=== PATIENT | male | born 1960 | race African-American/Black ===

== ENCOUNTER 2022-10-02 12:05 | Inpatient (IN) | payer OTHER ==
[2022-10-02 12:29] VITALS: BMI 38.3
[2022-10-02] MEDS ORDERED: BENZOCAINE/MENTHOL (CHLORASEPTIC ) LOZENGE MM PRN (13:01)
[2022-10-02] MEDS ORDERED: hydrOXYzine PAMOATE 25 MG CAPSULE (FP) PO PRN (13:01)
[2022-10-02] MEDS ORDERED: LOPERAMIDE HCL 2 MG CAPSULE PO PRN (13:01)
[2022-10-02] MEDS ORDERED: MAGNESIUM HYDROX 2400MG/30ML ORAL SUSPENSION 30 ML CUP PO PRN (13:01)
[2022-10-02] MEDS ORDERED: ONDANSETRON *ODT* 4 MG TABLET SL PRN (13:01)
[2022-10-02] MEDS ORDERED: LORazepam 1 MG TABLET PO PRN (13:01)
[2022-10-02] MEDS ORDERED: ACETAMINOPHEN 325 MG TABLET (FP) PO PRN (13:01)
[2022-10-02] MEDS ORDERED: POLYETHYLENE GLYCOL (HEALTHYLAX) 3350 17 GM PACKET PO PRN (13:01)
[2022-10-02] MEDS ORDERED: BENZONATATE 200 MG CAPSULE PO PRN (13:01)
[2022-10-02] MEDS ORDERED: NALOXONE HCL 0.4 MG/ML VIAL IM PRN (13:01)
[2022-10-02] MEDS ORDERED: BISMUTH SUBSALICYLATE 524 MG/30 ML PO PRN (13:01)
[2022-10-02] MEDS ORDERED: NALOXONE HCL (KLOXXADO) 8 MG SPRAY NS PRN (13:01)
[2022-10-02] MEDS ORDERED: DICYCLOMINE HCL 10 MG CAPSULE PO PRN (13:01)
[2022-10-02] MEDS ORDERED: NICOTINE POLACRILEX 2 MG GUM BUC PRN (13:01)
[2022-10-02] MEDS ORDERED: guaiFENesin 600 MG TABLET.ER (FP) PO PRN (13:01)
[2022-10-02] MEDS ORDERED: MAG HYDROX/AL HYDROX/SIMETH 30 ML UNIT-DOSE CUP PO PRN (13:01)
[2022-10-02] MEDS ORDERED: IBUPROFEN 400 MG TABLET (FP) PO PRN (13:01)
[2022-10-02] MEDS ORDERED: PATIENT'S OWN MEDICATION (NON-FORMULARY) (Dolutegravir/Rilpivirine [Juluca 50-25 Mg Tablet PO SCH (15:15)
[2022-10-02] MEDS ORDERED: RILPIVIRINE HCL 25 MG TABLET PO ONE (15:45)
[2022-10-02] MEDS ORDERED: DOLUTEGRAVIR SODIUM 50 MG TABLET (NON-FORMULARY) PO ONE (15:45)
[2022-10-02] MEDS: LORazepam 2 MG TABLET PO SCH ×2 (17:22→22:18)
[2022-10-02] MEDS ORDERED: MELATONIN 5 MG TABLETS PO SCH (22:00)
[2022-10-02] MEDS: SUVOREXANT 10 MG TABLET PO PRN (22:21)
[2022-10-02] MEDS: THIAMINE HCL 100 MG TABLET (FP) PO SCH (22:21)
[2022-10-03] MEDS: LORazepam 2 MG TABLET PO SCH ×4 (05:41→22:14)
[2022-10-03] MEDS: RILPIVIRINE HCL 25 MG TABLET PO SCH (07:07)
[2022-10-03] MEDS: DOLUTEGRAVIR SODIUM 50 MG TABLET (NON-FORMULARY) PO SCH (07:07)
[2022-10-03] MEDS: HYDROCHLOROTHIAZIDE 12.5 MG CAPSULE (FP) PO SCH (10:24)
[2022-10-03] MEDS: PRENATAL VITAMINS W/ FOLIC ACID TABLET (FP) PO SCH (10:24)
[2022-10-03] MEDS: LISINOPRIL 10 MG TABLET PO SCH (10:24)
[2022-10-03 10:39] LABS: HEMATOCRIT 36.9 % (35.4-49); HEMOGLOBIN 12.5 GM/dL (11.7-16.9); MCH 29.9 pg (25.7-33.7); MCHC 33.9 g/dl (32.0-35.9); MEAN CELL VOLUME 88.4 fl (80-96); MEAN PLT VOLUME 9.9 fl (7.5-11.1); PLATELET COUNT 170 10^3/uL (134-434); RBC 4.18 M/mm3 (4.00-5.60); RDW 14.1 % (11.9-15.9); WHITE BLOOD COUNT 3.7 K/mm3 (4.0-10.0)
[2022-10-03 12:58] LABS: POTASSIUM 3.6 mmol/L (3.5-5.1)
[2022-10-03 14:03] LABS: CALCIUM 8.6 mg/dL (8.5-10.1)
[2022-10-03 14:04] LABS: ALBUMIN 2.9 g/dl (3.4-5.0); BLOOD UREA NITROGEN 10.7 mg/dL (7-18)
[2022-10-03 14:05] LABS: CREATININE 1.3 mg/dL (0.55-1.3)
[2022-10-03 14:08] LABS: BILIRUBIN,TOTAL 0.4 mg/dL (0.2-1)
[2022-10-03 14:09] LABS: TOT PROT 6.2 g/dl (6.4-8.2)
[2022-10-03] MEDS ORDERED: INSULIN (NOVOLOG) ASPART 100 UNITS/ML 10ML VIAL ONE ×2 (17:27→22:18)
[2022-10-03] MEDS: INSULIN (NOVOLOG) ASPART 100 UNITS/ML 10ML VIAL SQ SCH ×2 (17:28→22:15)
[2022-10-03] MEDS: THIAMINE HCL 100 MG TABLET (FP) PO SCH (22:13)
[2022-10-03] MEDS: SUVOREXANT 10 MG TABLET PO PRN (22:20)
[2022-10-04] MEDS: LORazepam 1 MG TABLET PO SCH ×4 (05:56→22:21)
[2022-10-04] MEDS ORDERED: INSULIN (NOVOLOG) ASPART 100 UNITS/ML 10ML VIAL ONE ×4 (06:09→21:31)
[2022-10-04] MEDS: INSULIN (NOVOLOG) ASPART 100 UNITS/ML 10ML VIAL SQ SCH ×4 (06:17→21:27)
[2022-10-04] MEDS: DOLUTEGRAVIR SODIUM 50 MG TABLET (NON-FORMULARY) PO SCH (07:24)
[2022-10-04] MEDS: RILPIVIRINE HCL 25 MG TABLET PO SCH (07:24)
[2022-10-04] MEDS: PRENATAL VITAMINS W/ FOLIC ACID TABLET (FP) PO SCH (11:07)
[2022-10-04] MEDS: LISINOPRIL 10 MG TABLET PO SCH (11:07)
[2022-10-04] MEDS: HYDROCHLOROTHIAZIDE 12.5 MG CAPSULE (FP) PO SCH (11:07)
[2022-10-04] MEDS ORDERED: HYDROCHLOROTHIAZIDE 12.5 MG CAPSULE (FP) PO ONE (13:15)
[2022-10-04] MEDS: INSULIN (LEVEMIR) 100 UNITS/ML UNITS SQ SCH (21:28)
[2022-10-04] MEDS: THIAMINE HCL 100 MG TABLET (FP) PO SCH (21:32)
[2022-10-04] MEDS: valACYclovir HCL 500 MG TABLET (FP) PO SCH (22:22)
[2022-10-04] MEDS: SUVOREXANT 15 MG TABLET PO PRN (22:22)
[2022-10-05] MEDS ORDERED: LORazepam 0.5 MG TABLET PO PRN
[2022-10-05] MEDS: LORazepam 0.5 MG TABLET PO SCH ×4 (05:47→22:38)
[2022-10-05] MEDS: IBUPROFEN 600 MG TABLET (FP) PO PRN (05:48)
[2022-10-05] MEDS: RILPIVIRINE HCL 25 MG TABLET PO SCH (07:39)
[2022-10-05] MEDS: DOLUTEGRAVIR SODIUM 50 MG TABLET (NON-FORMULARY) PO SCH (07:40)
[2022-10-05] MEDS: INSULIN (NOVOLOG) ASPART 100 UNITS/ML 10ML VIAL SQ SCH ×4 (07:48→23:37)
[2022-10-05] MEDS ORDERED: INSULIN (NOVOLOG) ASPART 100 UNITS/ML 10ML VIAL ONE (08:08)
[2022-10-05] MEDS: LISINOPRIL 10 MG TABLET PO SCH (10:44)
[2022-10-05] MEDS: PRENATAL VITAMINS W/ FOLIC ACID TABLET (FP) PO SCH (10:44)
[2022-10-05] MEDS: METHOCARBAMOL 500 MG TABLET PO PRN (10:44)
[2022-10-05] MEDS: HYDROCHLOROTHIAZIDE 25 MG TABLET (FP) PO SCH (10:44)
[2022-10-05] MEDS: valACYclovir HCL 500 MG TABLET (FP) PO SCH ×2 (10:44→22:38)
[2022-10-05 21:00] VITALS: RESP 18
[2022-10-05] MEDS ORDERED: SUVOREXANT 10 MG TABLET PO PRN (22:00)
[2022-10-05] MEDS: THIAMINE HCL 100 MG TABLET (FP) PO SCH (22:38)
[2022-10-05] MEDS: SUVOREXANT 15 MG TABLET PO PRN (22:42)
[2022-10-05] MEDS: INSULIN (LEVEMIR) 100 UNITS/ML UNITS SQ SCH (23:37)
[2022-10-06] MEDS: METHOCARBAMOL 500 MG TABLET PO PRN (00:40)
[2022-10-06] MEDS ORDERED: LORazepam 0.5 MG TABLET PO ONE (05:00)
[2022-10-06] MEDS: IBUPROFEN 600 MG TABLET (FP) PO PRN (05:45)
[2022-10-06] MEDS: INSULIN (NOVOLOG) ASPART 100 UNITS/ML 10ML VIAL SQ SCH (06:54)
[2022-10-06] MEDS: DOLUTEGRAVIR SODIUM 50 MG TABLET (NON-FORMULARY) PO SCH (07:12)
[2022-10-06] MEDS: RILPIVIRINE HCL 25 MG TABLET PO SCH (07:12)
[2022-10-06 07:21] VITALS: BP 128/68; PULSE 68; TEMP 97.6
[2022-10-06] MEDS: HYDROCHLOROTHIAZIDE 25 MG TABLET (FP) PO SCH (09:04)
[2022-10-06] MEDS: LISINOPRIL 10 MG TABLET PO SCH (09:04)
[2022-10-06] MEDS: PRENATAL VITAMINS W/ FOLIC ACID TABLET (FP) PO SCH (09:04)
[2022-10-06] MEDS: valACYclovir HCL 500 MG TABLET (FP) PO SCH (09:04)
== END 2022-10-06 09:26 | disposition home or self-care (01) | DRG 897 ==
LOC: YASAS 12:05 → Y6N 13:36
PROVIDERS: ADMIT Allergy & Immunology; ATTEND Allergy & Immunology
PROC: HZ2ZZZZ Detoxification Services for Substance Abuse Treatment (ICD-10-PCS; principal; 2022-10-02)
DX: F10.230 Alcohol dependence with withdrawal, uncomplicated (principal); F14.20 Cocaine dependence, uncomplicated; F19.282 Other psychoactive substance dependence with psychoactive substance-induced sleep disorder; F19.280 Other psychoactive substance dependence with psychoactive substance-induced anxiety disorder; F17.210 Nicotine dependence, cigarettes, uncomplicated; F32.9 Major depressive disorder, single episode, unspecified; Z21 Asymptomatic human immunodeficiency virus [HIV] infection status; I10 Essential (primary) hypertension; N40.0 Benign prostatic hyperplasia without lower urinary tract symptoms; R73.9 Hyperglycemia, unspecified; Z62.810 Personal history of physical and sexual abuse in childhood; Z99.89 Dependence on other enabling machines and devices; Z28.310 Unvaccinated for COVID-19; Z28.9 Immunization not carried out for unspecified reason
CPT/HCPCS: 36415; 80053; 82962; 83036; 85027; 86780; 87635